=== PATIENT | male | born 1985 | race Two or more races ===

== ENCOUNTER 2025-03-22 10:54 | Emergency (ER) | payer MEDICAID ==
[~2025-03-22] VITALS: Ht 170.2 cm; Wt 81.6 kg
[2025-03-22 10:58] VITALS: BP 112/85; TEMP 98.3
[2025-03-22] MEDS ORDERED: PRED20TA PO (11:19)
[2025-03-22] MEDS ORDERED: CEPH-570 PO (11:19)
[2025-03-22 11:27] VITALS: O2SAT 99
== END 2025-03-22 12:03 | disposition home or self-care (01) ==
LOC: ER 10:59
DX: L30.9 Dermatitis, unspecified (principal); Z79.52 Long term (current) use of systemic steroids